=== PATIENT | female | born 1945 | race Caucasian/White ===

== ENCOUNTER → 2016-02-20 | Outpatient (CLI) | payer MEDICARE ==
[~2016-02-20] MED LIST: CALC-762 PO; HYDR-3702 PO; INDA1.25 PO; IRON1CAP31 PO; LSNP20T PO; MAGN400T26 PO; MULT-55 PO; OMEG-58 PO; SMV20T PO
--- NOTE | 2016-02-20 17:12 | Diagnostic Imaging Report ---
PROCEDURE: US Thyroid. TECHNIQUE: Multiple real-time grayscale images were obtained of the thyroid in various projections. INDICATION: History of thyroid cancer. COMPARISON: 03/16/2015. FINDINGS: Changes of total thyroidectomy. There is no soft tissue mass or lymphadenopathy within the surgical bed or neck. IMPRESSION: Status post thyroidectomy. No residual thyroid tissue, mass or lymphadenopathy. Dictated by: Dictated on workstation # [id number]
== END ==
LOC: RAD 13:51
PROVIDERS: ATTEND Internal Medicine
DX: C73 Malignant neoplasm of thyroid gland (principal); E89.0 Postprocedural hypothyroidism
CPT/HCPCS: 76536